=== PATIENT | female | born 1950 | race Caucasian/White ===

== ENCOUNTER 2017-04-26 08:35 | Inpatient (IN) | payer MEDICARE ==
[2017-04-22 12:27] LABS: Urine Bacteria FEW /hpf (None Seen); Urine Blood Negative /uL (Negative); Urine Hyaline Cast FEW /lpf (0 - 2); Urine Specific Gravity 1.015 (1.001-1.035); Urine WBC 17 /hpf (0 - 5)
[2017-04-22 12:34] LABS: Basophils # (auto) 0.1 uL; Basophils % (auto) 0.9 % (0.0-2.0); Eosinophils # (auto) 0.3 uL; Eosinophils % (auto) 3.5 % (0.0-7.0); Hematocrit 38.8 % (36.0-46.0); Hemoglobin 12.4 g/dL (12.2-16.2); Lymphocytes # (auto) 1.9 uL; Lymphocytes % (auto) 25.9 % (10.0-50.0); Mean Corpuscular Hemoglobin 31.6 pg (28.0-32.0); Mean Corpuscular Volume 98.8 fL (80.0-100.0); Monocytes # (auto) 0.5 uL; Monocytes % (auto) 6.3 % (0.0-12.0); Neutrophils # (auto) 4.6 uL; Neutrophils % (auto) 63.4 % (37.0-80.0); Nucleated Red Blood Cells % 0.1 %; Platelet Count (auto) 191 10^3/uL (140-450); Red Blood Cells 3.93 10^6/uL (4.0-5.20); Red Cell Distribution Width 13.8 % (11.8-14.3); White Blood Cell 7.3 10^3/uL (4.4-10.8)
[2017-04-22 12:36] LABS: INR 0.98 (0.9-1.15); Partial Thromboplastin Time 27.2 sec (22.64-33.71); Prothrombin Time 10.7 sec (9.37-12.3)
[2017-04-22 12:41] LABS: Albumin 3.6 g/dL (3.4-5.0); Calcium 8.7 mg/dL (8.5-10.1); Potassium 3.9 mmol/L (3.5-5.1)
[2017-04-22 12:46] LABS: Bilirubin, Total 0.3 mg/dL (0.2-1.0); Total Protein 7.3 g/dL (6.4-8.2)
[~2017-04-26] VITALS: Ht 154.9 cm; Wt 81.9 kg
[~2017-04-26 08:35] MED LIST: ALLO100T PO; ATOR20TA50 PO; CHOL20007 PO; FURO40TA4 PO; INSUINJ18 SC; MORP1CAP9 PO; MORP30TA PO; POTA10TA34 PO; PRIM50TA29 PO; SERT-274 PO; TOPI100T68 PO
[2017-04-26] MEDS ORDERED: ROPIVACAINE 0.5% (5MG/ML) 20ML AMPULE IJ ONE (09:36)
[2017-04-26] MEDS ORDERED: LIDOCAINE W/ EPINEPHRINE 2% INJ 20ML VIAL ONE (09:36)
[2017-04-26] MEDS ORDERED: fentaNYL CITRATE 100 MCG/2 ML VL ONE (09:40)
[2017-04-26] MEDS ORDERED: MORPHINE SULF(PF) 0.5MG/ML 10ML VIAL ONE (09:40)
[2017-04-26] MEDS ORDERED: MIDAZOLAM HCL 1MG/1ML-2 ML VIAL ONE (09:40)
[2017-04-26] MEDS ORDERED: PROPOFOL 10 MG/ML 20 ML IV ONE ×2 (09:43→11:22)
[2017-04-26] MEDS ORDERED: BACITRACIN INJ 50000 UNIT VIAL ONE (10:13)
[2017-04-26] MEDS ORDERED: TETRACAINE 1% INJ 2 ML VIAL IJ ONE (10:21)
[2017-04-26] MEDS ORDERED: PHENYLEPHRINE HCL 10 MG/ML VL ONE (11:43)
[2017-04-26] MEDS ORDERED: ONDANSETRON HCL 4 MG/2 ML VIAL IV PRN ×2 (12:15→12:30)
[2017-04-26] MEDS ORDERED: NITROGLYCERIN 0.4 MG SL TAB SL PRN (12:15)
[2017-04-26] MEDS ORDERED: MORPHINE SULF INJ 2 MG/ML SYRINGE 1ML IV PRN (12:15)
[2017-04-26] MEDS ORDERED: MORPHINE SULFATE 4 MG/ML SYR/VIAL IV PRN (12:15)
[2017-04-26] MEDS ORDERED: diphenhdrAMINE HCL 50 MG/1 ML VL IV PRN ×2 (12:30→17:30)
[2017-04-26] MEDS ORDERED: NALOXONE HCL 0.4 MG/ML VIAL IV PRN (12:30)
[2017-04-26] MEDS ORDERED: DEXAMETHASONE SOD PHOS 10MG/1ML VIAL INJ IV PRN (12:30)
[2017-04-26] MEDS ORDERED: NALBUPHINE HCL 10 MG/1ml INJECTION SUBCUT ONE (12:30)
[2017-04-26 13:00] VITALS: BP 123/71
[2017-04-26 14:00] VITALS: BP 123/71
[2017-04-26] MEDS ORDERED: DEXTROSE (50%) 50ML SYRG IV PRN (15:00)
[2017-04-26] MEDS: ACCU-CHEK COMFORT CURVE STRIP VI SCH ×2 (17:40→22:20)
[2017-04-26] MEDS: CLINDAMYCIN 600MG IV 50 ML IV SCH ×2 (17:40→23:24)
[2017-04-26] MEDS: InsuLIN REG 1unit/0.01ml Soln (100units/ml) SC SCH ×2 (17:41→22:20)
[2017-04-26 17:50] VITALS: BP 147/77
[2017-04-26 19:50] VITALS: BP 164/76
[2017-04-26] MEDS: MORPHINE SULFATE 4 MG/ML SYR/VIAL IV PRN ×2 (19:57→23:24)
[2017-04-26] MEDS ORDERED: IBUPROFEN 600 MG TAB PO PRN (20:45)
[2017-04-26 21:46] VITALS: BP 149/73
[2017-04-26] MEDS: DOCUSATE SOD 100 MG CAP PO SCH (22:20)
[2017-04-26] MEDS: LACTATED RINGER'S 1,000 ML IV SCH (22:20)
[2017-04-26] MEDS: TOPIRAMATE 100 MG TAB PO SCH (22:20)
[2017-04-26] MEDS: PRIMIDONE 50 MG TAB PO SCH (22:20)
[2017-04-27] MEDS: MORPHINE SULFATE 4 MG/ML SYR/VIAL IV PRN ×9 (02:41→23:24)
[2017-04-27 05:00] VITALS: BP 129/60
[2017-04-27] MEDS: ACCU-CHEK COMFORT CURVE STRIP VI SCH ×4 (06:26→21:50)
[2017-04-27] MEDS: InsuLIN REG 1unit/0.01ml Soln (100units/ml) SC SCH ×4 (06:26→22:00)
[2017-04-27] MEDS: CLINDAMYCIN 600MG IV 50 ML IV SCH (06:26)
[2017-04-27] MEDS: LACTATED RINGER'S 1,000 ML IV SCH (06:26)
[2017-04-27 06:32] LABS: Basophils # (auto) 0 uL; Basophils % (auto) 0.5 % (0.0-2.0); Eosinophils # (auto) 0 uL; Hematocrit 26.8 % (36.0-46.0); Hemoglobin 9.2 g/dL (12.2-16.2); Lymphocytes # (auto) 1.3 uL; Lymphocytes % (auto) 15.7 % (10.0-50.0); Mean Corpuscular Hemoglobin 33.5 pg (28.0-32.0); Mean Corpuscular Hgb Conc. 34.2 g/dL (32.0-36.0); Mean Corpuscular Volume 98.1 fL (80.0-100.0); Monocytes # (auto) 0.7 uL; Neutrophils # (auto) 6.1 uL; Neutrophils % (auto) 74.8 % (37.0-80.0); Platelet Count (auto) 140 10^3/uL (140-450); Red Blood Cells 2.73 10^6/uL (4.0-5.20); Red Cell Distribution Width 13.5 % (11.8-14.3); White Blood Cell 8.2 10^3/uL (4.4-10.8)
[2017-04-27 07:11] LABS: Albumin 2.9 g/dL (3.4-5.0); BUN/Creatinine Ratio 15.7; Bilirubin, Total 0.5 mg/dL (0.2-1.0); Calcium 7.8 mg/dL (8.5-10.1); Potassium 3.9 mmol/L (3.5-5.1); Total Protein 5.9 g/dL (6.4-8.2)
[2017-04-27 09:00] VITALS: BP 162/79
[2017-04-27] MEDS: DOCUSATE SOD 100 MG CAP PO SCH ×2 (10:05→21:50)
[2017-04-27] MEDS: TOPIRAMATE 100 MG TAB PO SCH ×2 (10:06→21:50)
[2017-04-27] MEDS: SERTRALINE HCL 50 MG TAB PO SCH (10:06)
[2017-04-27] MEDS: PRIMIDONE 50 MG TAB PO SCH ×2 (10:06→21:50)
[2017-04-27 13:00] VITALS: BP 162/73
[2017-04-27 16:58] VITALS: BP 156/73
[2017-04-27] MEDS: INSULIN 70/30 1unit/0.01ml Susp (100units/ml) SC SCH (17:28)
[2017-04-27 21:30] VITALS: BP 147/74
[2017-04-28] MEDS: MORPHINE SULFATE 4 MG/ML SYR/VIAL IV PRN ×11 (01:50→22:24)
[2017-04-28 04:39] VITALS: BP 158/71
[2017-04-28] MEDS: InsuLIN REG 1unit/0.01ml Soln (100units/ml) SC SCH ×4 (05:55→21:47)
[2017-04-28] MEDS: ACCU-CHEK COMFORT CURVE STRIP VI SCH ×4 (05:55→21:47)
[2017-04-28 06:10] LABS: Basophils # (auto) 0 uL; Basophils % (auto) 0.1 % (0.0-2.0); Eosinophils # (auto) 0 uL; Hematocrit 26.2 % (36.0-46.0); Hemoglobin 8.9 g/dL (12.2-16.2); Lymphocytes # (auto) 1.4 uL; Mean Corpuscular Hemoglobin 33.3 pg (28.0-32.0); Mean Corpuscular Hgb Conc. 34.1 g/dL (32.0-36.0); Mean Corpuscular Volume 97.8 fL (80.0-100.0); Monocytes # (auto) 0.9 uL; Monocytes % (auto) 8.3 % (0.0-12.0); Neutrophils # (auto) 8.5 uL; Neutrophils % (auto) 78.6 % (37.0-80.0); Platelet Count (auto) 148 10^3/uL (140-450); Red Blood Cells 2.68 10^6/uL (4.0-5.20); Red Cell Distribution Width 13.4 % (11.8-14.3); White Blood Cell 10.8 10^3/uL (4.4-10.8)
[2017-04-28 06:31] LABS: BUN/Creatinine Ratio 14.1; Calcium 8.6 mg/dL (8.5-10.1); Potassium 3.8 mmol/L (3.5-5.1)
[2017-04-28] MEDS: RIVAROXABAN 10 MG TAB PO SCH (08:11)
[2017-04-28] MEDS: INSULIN 70/30 1unit/0.01ml Susp (100units/ml) SC SCH ×2 (08:11→18:01)
[2017-04-28 09:00] VITALS: BP 132/60
[2017-04-28] MEDS: PRIMIDONE 50 MG TAB PO SCH ×2 (10:22→21:47)
[2017-04-28] MEDS: TOPIRAMATE 100 MG TAB PO SCH ×2 (10:22→21:47)
[2017-04-28] MEDS: SERTRALINE HCL 50 MG TAB PO SCH (10:22)
[2017-04-28] MEDS: DOCUSATE SOD 100 MG CAP PO SCH ×2 (10:23→21:47)
[2017-04-28 16:52] VITALS: BP 143/62
[2017-04-28 22:00] VITALS: BP 151/73
[2017-04-29] MEDS: MORPHINE SULFATE 4 MG/ML SYR/VIAL IV PRN ×6 (01:29→17:16)
[2017-04-29 05:43] VITALS: BP 140/61
[2017-04-29] MEDS: ACCU-CHEK COMFORT CURVE STRIP VI SCH ×4 (07:11→22:16)
[2017-04-29] MEDS: InsuLIN REG 1unit/0.01ml Soln (100units/ml) SC SCH ×4 (07:12→22:36)
[2017-04-29] MEDS: INSULIN 70/30 1unit/0.01ml Susp (100units/ml) SC SCH ×2 (07:33→19:48)
[2017-04-29] MEDS: RIVAROXABAN 10 MG TAB PO SCH (07:33)
[2017-04-29 08:01] LABS: Hematocrit 25.4 % (36.0-46.0); Hemoglobin 8.5 g/dL (12.2-16.2)
[2017-04-29 09:00] VITALS: BP_SYST 153; BP_SYST 79; BP_DIAS 48; BP_DIAS 65
[2017-04-29] MEDS: PRIMIDONE 50 MG TAB PO SCH ×2 (10:27→22:16)
[2017-04-29] MEDS: SERTRALINE HCL 50 MG TAB PO SCH (10:27)
[2017-04-29] MEDS: DOCUSATE SOD 100 MG CAP PO SCH ×2 (10:28→22:13)
[2017-04-29] MEDS: TOPIRAMATE 100 MG TAB PO SCH ×2 (10:28→22:16)
[2017-04-29 12:00] VITALS: BP 124/57
[2017-04-29] MEDS ORDERED: LACTULOSE 20Gm/30ML SOLN PO ONE (13:15)
[2017-04-29] MEDS ORDERED: DOCUSATE SOD 100 MG CAP PO ONE (13:15)
[2017-04-29] MEDS: MORPHINE SULF 30 mg ER tab PO SCH ×2 (14:20→22:16)
[2017-04-29 22:00] VITALS: BP 122/49
[2017-04-30 04:24] VITALS: BP 116/58
[2017-04-30] MEDS: InsuLIN REG 1unit/0.01ml Soln (100units/ml) SC SCH ×4 (06:45→21:41)
[2017-04-30] MEDS: MORPHINE SULF 30 mg ER tab PO SCH ×3 (06:45→21:24)
[2017-04-30] MEDS: ACCU-CHEK COMFORT CURVE STRIP VI SCH ×4 (06:45→21:42)
[2017-04-30 09:00] VITALS: BP 133/51
[2017-04-30] MEDS: TOPIRAMATE 100 MG TAB PO SCH ×2 (09:31→21:19)
[2017-04-30] MEDS: SERTRALINE HCL 50 MG TAB PO SCH (09:32)
[2017-04-30] MEDS: PRIMIDONE 50 MG TAB PO SCH ×2 (09:32→21:19)
[2017-04-30] MEDS: RIVAROXABAN 10 MG TAB PO SCH (09:33)
[2017-04-30] MEDS: DOCUSATE SOD 100 MG CAP PO SCH ×2 (09:34→21:30)
[2017-04-30] MEDS: INSULIN 70/30 1unit/0.01ml Susp (100units/ml) SC SCH ×2 (09:46→18:35)
[2017-04-30 12:00] VITALS: BP 118/42
[2017-04-30] MEDS ORDERED: MORPHINE SULFATE 4 MG/ML SYR/VIAL IV PRN (14:15)
[2017-04-30 16:00] VITALS: BP 146/53
[2017-04-30 20:00] VITALS: BP 134/65
[2017-04-30 21:37] VITALS: BP 134/65
[2017-05-01 05:00] VITALS: BP 116/59
[2017-05-01] MEDS: MORPHINE SULF 30 mg ER tab PO SCH ×2 (05:39→14:09)
[2017-05-01] MEDS: InsuLIN REG 1unit/0.01ml Soln (100units/ml) SC SCH ×2 (06:17→11:12)
[2017-05-01] MEDS: ACCU-CHEK COMFORT CURVE STRIP VI SCH ×2 (06:17→11:12)
[2017-05-01] MEDS: INSULIN 70/30 1unit/0.01ml Susp (100units/ml) SC SCH (08:36)
[2017-05-01] MEDS: RIVAROXABAN 10 MG TAB PO SCH (08:36)
[2017-05-01 08:42] VITALS: BP 142/64
[2017-05-01] MEDS: DOCUSATE SOD 100 MG CAP PO SCH (10:00)
[2017-05-01] MEDS: TOPIRAMATE 100 MG TAB PO SCH (11:02)
[2017-05-01] MEDS: SERTRALINE HCL 50 MG TAB PO SCH (11:02)
[2017-05-01] MEDS: PRIMIDONE 50 MG TAB PO SCH (11:02)
[2017-05-01 12:33] VITALS: BP 132/63
[2017-05-01 15:18] VITALS: BP 132/63
[2017-05-01 16:46] VITALS: BP 149/63
== END 2017-05-01 17:04 | DRG 470 ==
LOC: SUR 08:35 → TELE-WESTW 08:36
PROVIDERS: ADMIT Orthopaedic Surgery; ATTEND Internal Medicine
PROC: 0SRC0J9 Replacement of Right Knee Joint with Synthetic Substitute, Cemented, Open Approach (ICD-10-PCS; principal; 2017-04-26 10:16)
DX: M17.11 Unilateral primary osteoarthritis, right knee (principal); E11.22 Type 2 diabetes mellitus with diabetic chronic kidney disease; G35 Multiple sclerosis; E78.5 Hyperlipidemia, unspecified; D64.9 Anemia, unspecified; E66.9 Obesity, unspecified; M24.661 Ankylosis, right knee; I45.4 Nonspecific intraventricular block; M10.9 Gout, unspecified; G89.29 Other chronic pain; G40.909 Epilepsy, unspecified, not intractable, without status epilepticus; I12.9 Hypertensive chronic kidney disease with stage 1 through stage 4 chronic kidney disease, or unspecified chronic kidney disease; N18.2 Chronic kidney disease, stage 2 (mild); M79.7 Fibromyalgia; Z79.4 Long term (current) use of insulin; Z68.34 Body mass index [BMI] 34.0-34.9, adult
CPT/HCPCS: 36415; 73562; 80048; 80053; 81001; 82962; 83036; 85014; 85018; 85025; 85610; 85730; 86850; 86900; 86901; 93005; J1815; J2250; J2405; J2704; J3490